=== PATIENT | female | born 1970 | race Caucasian/White ===

== ENCOUNTER 2023-04-26 12:46 | Outpatient (CLI) | payer BC, SELFPAY ==
--- NOTE | ~2023-04-26 | XR_ITS ---
Right foot Technique: AP and lateral standing views were obtained. Clinical History: Pain Findings: No acute fracture or dislocation is seen. Osseous alignment is anatomic. Joint spaces are p reserved without erosive or degenerative change. Soft tissues are unremarkable. Impression: Unremarkable right foot radiographs. Reviewed, dictated and finalized at location . R BALER Impression: Unremarkable right foot radiographs.
--- NOTE | ~2023-04-26 | XR_ITS ---
Left foot Technique: AP and lateral standing views were obtained. Clinical History: Pain Findings: No acute fracture or dislocation is seen. Osseous alignment is anatomic. Joint spaces are p reserved without erosive or degenerative change. Soft tissues are unremarkable. Impression: Unremarkable left foot radiographs. Reviewed, dictated and finalized at location . LD OPERATOR Impression: Unremarkable left foot radiographs.
--- NOTE | ~2023-04-26 | XR_ITS ---
AP and lateral views of the bilateral hips Clinical history: Pain Findings: No acute fracture or dislocation is seen. Osseous alignment is anatomic. Bilateral hip and SI joint spaces are preserved. Soft tissues are unremarkable. Impression: No significant abnormality is seen. Reviewed, dictated and finalized at location . FACTURING ENGINEER PAINT Impression: No significant abnormality is seen.
--- NOTE | ~2023-04-26 | XR_ITS ---
Bilateral Hands Technique: PA, oblique, and lateral views were obtained. Clinical History: Arthritis Findings: No acute fracture or dislocation is seen. Osseous alignment is anatomic. Joint spaces are p reserved. Soft tissues are unremarkable. Impression: Unremarkable bilateral hand radiographs. Reviewed, dictated and finalized at location . LE EXAMINER Impression: Unremarkable bilateral hand radiographs.
[2023-04-26 13:15] LABS: Hematocrit 38.5 % (35.0-49.0); Mean Corpuscular HGB Conc 31.2 g/dL (32.0-36.0); Mean Corpuscular Hemoglobin 27.7 pg (27.0-31.0); Mean Corpuscular Volume 88.9 fL (78.0-102.0); Mean Platelet Volume 9.6 fl (9.2-11.8); Platelet Count Result 241 K/mm3 (150-420); Red Blood Count 4.33 M/mm3 (4.20-5.40); White Blood Count 4.2 K/mm3 (4.8-10.8)
[2023-04-26 13:46] LABS: Creatinine Urine 61.37 mg/dL (40-278); Total Protein Urine Random 7.7 mg/dL (0.0-11.9); Ur Ttl Prot Creatinine Ratio 0.13 mg/mg (0-0.20)
[2023-04-26 13:57] LABS: Alanine Aminotransferase 20 U/L (14-59); Albumin Level 3.3 g/dL (3.4-5.0); Alkaline Phosphatase 95 U/L (46-116); Anion Gap 9 mmol/L (8-16); Aspartate Amino Transferase 19 U/L (15-37); Bilirubin,Total 0.3 mg/dL (0.00-1.00); Blood Urea Nitrogen 15 mg/dL (7-18); CRP 1.1 mg/dL (0.0-0.9); Calcium 8.6 mg/dL (8.5-10.1); Carbon Dioxide 27 mmol/L (21-32); Chloride 103 mmol/L (98-108); Estimated Glomerular Filt Rate > 60; Glucose 82 mg/dL (70-99); Osmolality Calculated 287 mOsm/kg (285-295); Potassium 4.2 mmol/L (3.5-5.1); Sodium 139 mmol/L (136-145); Total Protein 7.8 g/dL (6.4-8.2)
[2023-04-26 14:04] LABS: Rheumatoid Factor Screen Negative (Negative)
[2023-04-26 14:24] LABS: Erythrocyte Sedimentation Rate 38 mm/hr (0-20)
[2023-04-28 19:53] LABS: NIL 0.04 IU/mL; Quantiferon TB Plus, 1T NEGATIVE (NEGATIVE); TB1-NIL 0.01 IU/mL
[2023-04-28 20:33] LABS: Hepatitis B Surface Antibody Nonreactive (Nonreactive); Hepatitis B Surface Antigen Nonreactive (Nonreactive); Hepatitis C Virus Antibody Nonreactive
[2023-04-28 20:50] LABS: Lupus dRVVT Screen 40 sec (<=45); PTT-LA Screen 31 sec (<=40)
[2023-04-29 05:25] LABS: Anti Cyclic Citrullinated Pept 23 Units (<20)
[2023-04-29 09:28] LABS: Complement C3 126 mg/dL (83-193)
[2023-04-29 12:22] LABS: Vitamin D 25 Hydroxy 36 ng/mL (30-100)
[2023-05-04 13:23] LABS: Anti Cardio Antibody IgM <2.0 MPL-U/mL (<20.0); Anti Cardiolipin Antibody IgA <2.0 APL-U/mL (<20.0); Anti Cardiolipin Antibody IgG <2.0 GPL-U/mL (<20.0)
== END 2023-04-26 12:47 | disposition home or self-care (01) ==
PROVIDERS: PCP Family Medicine; Visit Provider Internal Medicine
DX: M06.042 Rheumatoid arthritis without rheumatoid factor, left hand (principal); M06.041 Rheumatoid arthritis without rheumatoid factor, right hand; Z79.899 Other long term (current) drug therapy; Z71.89 Other specified counseling; R53.83 Other fatigue; M35.9 Systemic involvement of connective tissue, unspecified; M19.90 Unspecified osteoarthritis, unspecified site; F32.A Depression, unspecified
CPT/HCPCS: 36415; 73130; 73521; 73620; 80053; 82306; 82570; 84156; 84550; 85027; 85613; 85652; 85730; 86140; 86146; 86147; 86160; 86200; 86430; 86480; 86706; 86803; 87340

== ENCOUNTER 2023-07-27 05:43 | Emergency (ER) | payer BC, SELFPAY ==
[2023-07-27 05:43] VITALS: BP 124/74; PULSE 85; RESP 18; TEMP 36.8; O2SAT 98
--- NOTE | 2023-07-27 05:53 | ED.URI ---
HPI - URI/Sore Throat General Chief Complaint: Upper Respiratory Infection Stated Complaint: fever/nausea Time Seen by Provider: 07/27/23 05:52 Source: patient Mode of arrival: ambulatory Limitations: no limitations History of Present Illness HPI Narrative: patient is a 52-year-old female with nasal pain and pressure for the past 4 days. She generally feels achy and not well. She said this is similar to how she feels when her lupus does flare as well. She is not sure if this is a sinus infection verses her lupus flare. MD elicited complaint: nasal congestion and sinus pain Pertinent past history: other ( SLE) Onset (ago): day(s) (4) Consistency: constant Severity: moderate Pain scale (0-10): 5 Description of mucous: clear Able to tolerate fluids by mouth: Yes Exacerbating factors: nothing Relieving factors: nothing Associated symptoms: fever, chills and myalgias Treatments prior to arrival: none Related Data Home Medications Medication Instructions Recorded Confirmed estradiol 2 mg tablet 2 mg PO DAILY 04/26/23 07/27/23 omeprazole 20 mg capsule,delayed 20 mg PO DAILY 04/26/23 07/27/23 release cariprazine 1.5 mg capsule 1.5 mg PO DAILY 07/27/23 07/27/23 (Vraylar) escitalopram oxalate 20 mg tablet 20 mg PO DAILY 07/27/23 07/27/23 lamotrigine 25 mg tablet 25 mg PO DAILY 07/27/23 07/27/23 Allergies Allergy/AdvReac Type Severity Reaction Status Date / Time ciprofloxacin AdvReac Intermediate Swelling Verified 07/27/23 05:50 levofloxacin AdvReac Intermediate Swelling Verified 07/27/23 05:50 nitrofurantoin AdvReac Intermediate Swelling Verified 07/27/23 05:50 Sulfa (Sulfonamide AdvReac Intermediate Swelling Verified 07/27/23 05:50 Antibiotics) Review of Systems Review of Systems: All systems reviewed & are unremarkable except as noted in HPI and below Constitutional: Constitutional: Reports no additional constitutional complaints Eyes: Eyes: Reports no additional eye complaints ENT: Reports system reviewed and no additional complaints, except as documented Cardiovascular: Cardiovascular: Reports no additional cardiovascular complaints Respiratory: Respiratory: Reports no additional respiratory complaints Gastrointestinal: Gastrointestinal: Reports no additional gastrointestinal complaints Genitourinary: Genitourinary: Reports no additional female genitourinary complaints Musculoskeletal: Musculoskeletal: Reports no additional musculoskeletal complaints Integumentary/Breasts: Skin/Breast: Reports system reviewed and no additional complaints, except as docu Neurologic: Reports system reviewed and no additional complaints, except as documented Psychiatric: Psychiatric: Reports no additional psychiatric complaints Endocrine: Endocrine: Reports no additional endocrine complaints Hematologic/Lymphatic: Hematologic/Lymphatic: Reports no additional hematologic/lymphatic complaints Allergic/Immunologic: Allergic/Immunologic: Reports no additional allergic/immunologic complaints PMFSH Past Medical History Medical History Anxiety Counseling on health promotion and disease prevention Depression Encounter for medication management Fatigue GERD (gastroesophageal reflux disease) Irritable bowel syndrome Lupus Undifferentiated connective tissue disease Family History Family History Father Hypertension Heart disease Mother Heart disease Hypertension Sibling Hypertension Social History Social History Smoking status: Never smoker Alcohol intake: never Exam Const: General: healthy appearing Nutritional Appearance: well nourished Orientation/consciousness: patient oriented x3 HENMT: Head: normal to inspection Ears: external ears normal Face/Nose/Sinus: Normal external nose present Face and sinus: sinus tenderness maxi
[2023-07-27] MEDS: predniSONE 20 MG TABLET 40 MG PO (06:11)
[2023-07-27 06:47] LABS: SARS-CoV-2 RNA PCR Negative (Negative)
[2023-07-27 06:49] LABS: Influenza A QL RT-PCR Negative (Negative); Influenza B QL RT-PCR Negative (Negative); RSV RNA, RT-PCR Negative (Negative)
== END 2023-07-27 07:08 | disposition home or self-care (01) ==
PROVIDERS: Emergency Provider Emergency Medicine; PCP Family Medicine
DX: J01.00 Acute maxillary sinusitis, unspecified (principal); M32.9 Systemic lupus erythematosus, unspecified; K21.9 Gastro-esophageal reflux disease without esophagitis; F41.9 Anxiety disorder, unspecified; F32.A Depression, unspecified; Z20.822 Contact with and (suspected) exposure to COVID-19
CPT/HCPCS: 87637; 99283; J7512